=== PATIENT | male | born 1945 | race Caucasian/White ===

== ENCOUNTER 2017-02-13 04:33 | Emergency (ER) | payer OTHER ==
[~2017-02-13] VITALS: Ht 180.3 cm; Wt 85.3 kg
--- NOTE | ~2017-02-13 | EKG ---
[place] [address] [facility] [employer] [place] [address] ELECTROCARDIOGRAM REPORT Name: GLENNA DELA CRUZ [facility]: [facility] [id number] Admission: 02/13/17 Attend Phys: Discharge: 02/13/17 Date of : 41 Report #: [id number] THIS REPORT FOR: //name// [facility] ED Test Date: 2017-02-13 Test Time: 05:16:50 Pat Name: GLENNA DELA CRUZ Department: Room: Gender: M [employer]cker: [facility] : 1945 Requested By: Will Ellison Order Number: [id number] MD: Sriram Ford Measurements Intervals [place] Rate: 45 P: 37 KS: 213 QRS: 21 QRSD: 103 T: 28 QT: 444 QTc: 385 Interpretive Statements Sinus bradycardia Otherwise normal Compared to ECG 03/20/2012 14:45:26 Heart rate has slowed Electronically Signed On 02-13-2017 8:25:59 CDT by Sriram Ford [email or web address] <ELECTRONICALLY SIGNED> By: Sriram Ford MD, [facility] 02/13/17 0825 0516 05 Sriram Ford MD, FACC /EPI
[~2017-02-13 04:33] MED LIST: ATORVASTATIN CA40 MG PO; CIALIS2.5 MG PO; EFFIENT10 MG PO; FISH OIL 1,0001 EAC5 PO; HYDROCHLOROTH12.5 MG PO; MAVIK1 MG PO; MAVIK2 MG PO; NASACORT NASAL; SLO-NIACIN500 MG PO; nasocort
[2017-02-13] MEDS ORDERED: COZAAR 25 MG TA25 M1 PO (05:24)
[2017-02-13] MEDS ORDERED: GLUCOSAMINE-CH1 EA25 PO (05:25)
== END 2017-02-13 05:54 | disposition home or self-care (01) ==
LOC: ER 04:33
DX: S01.01XA Laceration without foreign body of scalp, initial encounter (principal); R42 Dizziness and giddiness; I10 Essential (primary) hypertension; F10.99 Alcohol use, unspecified with unspecified alcohol-induced disorder; Z98.890 Other specified postprocedural states